=== PATIENT | female | born 1955 | race African-American/Black ===

== ENCOUNTER 2020-06-24 09:28 | Inpatient (IN) | payer MEDICARE, MEDICAID ==
[~2020-06-24] VITALS: Ht 182.9 cm; Wt 110.8 kg
[~2020-06-24 09:28] MED LIST: AMLO10TA80 PO; BACL-141 PO; FAMO20TA8; GABA-532 PO; HYDR25TA PO; SIMV-43 PO; TRAM50TA
[2020-06-24] MEDS ORDERED: SODIUM CHLORIDE 0.9% 1,000 ML IV ONE (10:00)
[2020-06-24 10:18] LABS: BASOPHILS % 0.3 % (0.0-2.0); EOSINOPHILS % 0.3 % (0.0-5.0); HEMATOCRIT. 35.2 % (36.0-48.0); HEMOGLOBIN. 11.2 g/dL (12.0-16.0); LYMPHOCYTES % 15.4 % (20.0-50.0); MEAN CORPUSCULAR HEMOGLOBIN 24.4 pg (28.0-32.0); MEAN CORPUSCULAR VOLUME 76.8 fL (81.0-99.0); MEAN PLATELET VOLUME 8.5 fl (7.4-10.4); MONOCYTES % 4.7 % (2.0-8.0); NEUTROPHILS % 79.3 % (40.0-76.0); PLATELET 253 x1000/uL (130-400); RED BLOOD CELL COUNT 4.58 mill/uL (4.2-5.4); RED CELL DISTRIBUTION WIDTH 19.7 % (11.6-14.6)
[2020-06-24 10:26] LABS: CHLORIDE 108 mEq/L (98-107)
[2020-06-24 10:28] LABS: PROTHROMBIN TIME 10.5 sec (9.6-11.0)
[2020-06-24 10:29] LABS: ETHANOL BLOOD < 10 mg/dL
[2020-06-24] MEDS ORDERED: FUROSEMIDE 40MG/4ML VIAL IVP ONE (11:15)
[2020-06-24] MEDS ORDERED: DEXAMETHASONE 4MG/ML 1ML VIAL IV ONE (11:45)
[2020-06-24 12:29] LABS: CLARITY URINE CLEAR (CLEAR); COLOR URINE YELLOW (YELLOW); KETONES URINE NEGATIVE (NEGATIVE); LEUKOCYTE ESTERASE URINE NEGATIVE (NEGATIVE); NITRITE URINE NEGATIVE (NEGATIVE); OCCULT BLOOD URINE NEGATIVE (NEGATIVE); PH URINE 6.5 (4.5-8.0); PROTEIN URINE 3+ (NEGATIVE); SPECIFIC GRAVITY URINE 1.016 (1.005-1.030); UROBILINOGEN URINE 0.2 E.U./dL (0.2-1.0)
[2020-06-24 12:43] LABS: *BARBITURATES SCREEN URINE NEGATIVE (NEGATIVE); *BENZODIAZEPINES SCREEN URINE NEGATIVE (NEGATIVE); *COCAINE SCREEN URINE NEGATIVE (NEGATIVE); METHADONE URINE SCREEN NEGATIVE (NEGATIVE); OPIATES URINE SCREEN NEGATIVE (NEGATIVE)
[2020-06-24 12:44] LABS: CANNABINOID URINE SCREEN NEGATIVE (NEGATIVE); PHENCYCLIDINE URINE SCREEN NEGATIVE (NEGATIVE)
[2020-06-24 12:46] LABS: *AMPHETAMINES SCREEN URINE NEGATIVE (NEGATIVE)
[2020-06-24] MEDS ORDERED: IOHEXOL 350 MG/ML 200ML INFUS..BTL IV ONE (14:23)
[2020-06-24] MEDS ORDERED: HYDRALAZINE 20MG/ML VIAL IV PRN (15:15)
[2020-06-24] MEDS ORDERED: AMLODIPINE 10MG TABLET PO SCH (15:15)
[2020-06-24] MEDS ORDERED: NITROGLYCERIN 0.4MG TABLET SL SL PRN (15:15)
[2020-06-24] MEDS ORDERED: CLONIDINE 0.1MG TABLET PO PRN (15:15)
[2020-06-24] MEDS ORDERED: ACETAMINOPHEN 325MG TABLET PO PRN (15:15)
[2020-06-24] MEDS ORDERED: TRAZODONE HCL 50MG TABLET PO PRN (15:15)
[2020-06-24] MEDS ORDERED: ONDANSETRON HCL 4MG/2ML INJ IV PRN (15:15)
[2020-06-24 16:00] VITALS: BP 135/76
[2020-06-24 16:05] LABS: CREATINE KINASE 284 IU/L (26-192)
[2020-06-24 17:41] LABS: BG BASE EXCESS -1.6 mmol/L (-2.0-2.0); BG CARBOXYHEMOGLOBIN 0.3 % (0.5-1.5); BG DEOXYHEMOGLOBIN 1.5 % (0.0-5.0); BG FRACTION INSPIRED OXYGEN 28; BG HCO3 ACT 25.1 mmol/L (22.0-26.0); BG METHEMOGLOBIN 0.4 % (0.0-1.5); BG OXYGEN SATURATION 98.5 % (92.0-98.5); BG OXYHEMOGLOBIN 97.8 % (94.0-97.0); BG PCO2 51.3 mmHg (35.0-45.0); BG PH 7.308 (7.350-7.450); BG PO2 141.3 mmHg (75.0-100.0); BG SAMPLE SITE RIGHT RADIAL; BG TOTAL HEMOGLOBIN 11.9 g/dL (12.0-18.0); BG VENT MODE NASAL CANNULA
[2020-06-24 20:00] VITALS: BP 159/64
[2020-06-24 20:04] VITALS: BP 148/78
[2020-06-24] MEDS ORDERED: ATORVASTATIN CALCIUM 40MG TABLET PO SCH (21:00)
[2020-06-24] MEDS ORDERED: INFLUENZA VACCINE 05/PF 0.5 ML VIAL IM ONE (21:30)
[2020-06-24] MEDS ORDERED: PNEUMOCOCCAL 23-VAL P-SAC VAC 0.5 ML IM ONE (21:30)
[2020-06-24] MEDS: HEPARIN 5000 UNITS/ML VIAL SUBCUT SCH (22:05)
[2020-06-25] VITALS: BP 168/79
[2020-06-25 08:17] VITALS: BP 152/66
[2020-06-25] MEDS: ASPIRIN 81MG TABLET PO SCH (08:31)
[2020-06-25] MEDS: HEPARIN 5000 UNITS/ML VIAL SUBCUT SCH ×2 (08:32→20:56)
[2020-06-25] MEDS ORDERED: FUROSEMIDE 40MG/4ML VIAL IVP SCH (09:00)
[2020-06-25] MEDS ORDERED: LOSARTAN POTASSIUM 25 MG TABLET PO SCH (09:15)
[2020-06-25 09:27] LABS: BASOPHILS % 0.3 % (0.0-2.0); EOSINOPHILS % 0.1 % (0.0-5.0); HEMATOCRIT. 35.6 % (36.0-48.0); HEMOGLOBIN. 11.2 g/dL (12.0-16.0); LYMPHOCYTES % 19.2 % (20.0-50.0); MEAN CORPUSCULAR HEMOGLOBIN 24.4 pg (28.0-32.0); MEAN CORPUSCULAR VOLUME 77.8 fL (81.0-99.0); MEAN PLATELET VOLUME 7.6 fl (7.4-10.4); MONOCYTES % 6.8 % (2.0-8.0); NEUTROPHILS % 73.6 % (40.0-76.0); PLATELET 257 x1000/uL (130-400); RED BLOOD CELL COUNT 4.58 mill/uL (4.2-5.4); RED CELL DISTRIBUTION WIDTH 19.9 % (11.6-14.6)
[2020-06-25 09:38] LABS: CHLORIDE 111 mEq/L (98-107)
[2020-06-25] MEDS ORDERED: MONT10TA32 MT (11:21)
[2020-06-25] MEDS ORDERED: ACET-2708 MT (11:21)
[2020-06-25] MEDS ORDERED: [UNRECOGNIZED DRUG - CODE] TOP (11:21)
[2020-06-25] MEDS ORDERED: SERT-422 MT (11:21)
[2020-06-25] MEDS ORDERED: ALBU18HF2 IH (11:21)
[2020-06-25] MEDS ORDERED: NAPHADR EACHEYE (11:21)
[2020-06-25] MEDS ORDERED: FERR325T6 MT (11:21)
[2020-06-25] MEDS ORDERED: ZOLP5TAB2 MT (11:21)
[2020-06-25] MEDS ORDERED: DICL100G31 TP (11:21)
[2020-06-25] MEDS ORDERED: FLUT15.844 BOTHNSTRLS (11:21)
[2020-06-25] MEDS ORDERED: OMEP20CA14 MT (11:21)
[2020-06-25] MEDS ORDERED: GLIP5TAB12 MT (11:21)
[2020-06-25] MEDS ORDERED: FLUT1BLS INH (11:21)
[2020-06-25] MEDS ORDERED: CALC60OI4 TP (11:21)
[2020-06-25] MEDS ORDERED: ASPI-1406 MT (11:21)
[2020-06-25] MEDS ORDERED: FURO40TA5 MT (11:21)
[2020-06-25] MEDS ORDERED: LIDO1ADH43 TP (11:21)
[2020-06-25] MEDS ORDERED: SODI88SP18 BOTHNSTRLS (11:21)
[2020-06-25] MEDS ORDERED: ALPR1TAB2 MT (11:21)
[2020-06-25] MEDS ORDERED: ATOR-2 MT (11:21)
[2020-06-25 11:40] VITALS: BP 139/70
[2020-06-25] MEDS ORDERED: FLUTICASONE/VILANTEROL 200-25 BLST.W.DEV ORI SCH (12:45)
[2020-06-25] MEDS ORDERED: DICLOFENAC SODIUM 4 GM TP PRN (12:45)
[2020-06-25] MEDS ORDERED: LIDOCAINE HCL TOP PRN (12:45)
[2020-06-25] MEDS ORDERED: LIDOCAINE TP SCH (12:45)
[2020-06-25] MEDS: OMEPRAZOLE 20MG CAPSULE EXTENDED RELEASE PO SCH (13:00)
[2020-06-25] MEDS: SERTRALINE HCL 50MG TABLET PO SCH (13:00)
[2020-06-25] MEDS: RISPERIDONE 0.5MG TABLET PO SCH (13:00)
[2020-06-25] MEDS: LIDOCAINE 5% PATCH TOP SCH (14:08)
[2020-06-25] MEDS: BENZONATATE 100MG CAPSULE PO SCH ×2 (14:10→21:15)
[2020-06-25] MEDS ORDERED: LIDOCAINE HCL 4% CREAM 76GM TUBE TP PRN (14:30)
[2020-06-25 16:03] VITALS: BP 100/56
[2020-06-25 20:00] VITALS: BP 92/43
[2020-06-25] MEDS: MONTELUKAST SODIUM 10MG TABLET PO SCH (20:55)
[2020-06-25] MEDS: ATORVASTATIN CALCIUM 40MG TABLET PO SCH (20:55)
[2020-06-25] MEDS ORDERED: MEDICATION NOT ON FORMULARY EA (Atorvastatin Calcium 1 TAB) MT SCH (21:00)
[2020-06-25] MEDS ORDERED: ATORVASTATIN CALCIUM 40MG TABLET PO SCH (21:00)
[2020-06-25] MEDS: ALBUTEROL (0.083%) 2.5MG/3ML NEB HHN SCH (21:42)
[2020-06-26] VITALS: BP 112/53
[2020-06-26] MEDS: ALBUTEROL (0.083%) 2.5MG/3ML NEB HHN SCH ×4 (01:02→21:13)
[2020-06-26] MEDS: BUDESONIDE 0.5MG/2ML NEB HHN SCH ×3 (01:02→21:13)
[2020-06-26 04:00] VITALS: BP 126/60
[2020-06-26] MEDS: BENZONATATE 100MG CAPSULE PO SCH ×3 (06:21→21:29)
[2020-06-26] MEDS: OMEPRAZOLE 20MG CAPSULE EXTENDED RELEASE PO SCH (06:21)
[2020-06-26 07:15] LABS: BASOPHILS % 0.2 % (0.0-2.0); EOSINOPHILS % 1.7 % (0.0-5.0); HEMATOCRIT. 30.3 % (36.0-48.0); HEMOGLOBIN. 9.8 g/dL (12.0-16.0); LYMPHOCYTES % 39.8 % (20.0-50.0); MEAN CORPUSCULAR HEMOGLOBIN 24.9 pg (28.0-32.0); MEAN CORPUSCULAR VOLUME 77.4 fL (81.0-99.0); MEAN PLATELET VOLUME 7.9 fl (7.4-10.4); MONOCYTES % 10.3 % (2.0-8.0); PLATELET 243 x1000/uL (130-400); RED BLOOD CELL COUNT 3.92 mill/uL (4.2-5.4); RED CELL DISTRIBUTION WIDTH 20.2 % (11.6-14.6)
[2020-06-26 07:18] LABS: CHLORIDE 108 mEq/L (98-107)
[2020-06-26 07:34] LABS: VITAMIN B12 SERUM 588 pg/mL (211-911)
[2020-06-26 08:00] VITALS: BP 121/63
[2020-06-26] MEDS: RISPERIDONE 0.5MG TABLET PO SCH (09:38)
[2020-06-26] MEDS: SERTRALINE HCL 50MG TABLET PO SCH (09:38)
[2020-06-26] MEDS: ASPIRIN 81MG TABLET PO SCH (09:38)
[2020-06-26] MEDS: HEPARIN 5000 UNITS/ML VIAL SUBCUT SCH ×2 (09:38→21:30)
[2020-06-26] MEDS: LIDOCAINE 5% PATCH TOP SCH (09:39)
[2020-06-26] MEDS ORDERED: SODIUM CHLORIDE 0.45% 250 ML IV ONE (10:00)
[2020-06-26] MEDS: AMLODIPINE 10MG TABLET PO SCH (11:59)
[2020-06-26 12:05] VITALS: BP 134/60
[2020-06-26 16:31] VITALS: BP 145/61
[2020-06-26 20:00] VITALS: BP 112/53
[2020-06-26] MEDS: SILDENAFIL CITRATE 20MG TABLET PO SCH (21:29)
[2020-06-26] MEDS: ATORVASTATIN CALCIUM 40MG TABLET PO SCH (21:29)
[2020-06-26] MEDS: MONTELUKAST SODIUM 10MG TABLET PO SCH (21:29)
[2020-06-27] VITALS: BP_SYST 112; BP_DIAS 34; BP_DIAS 54
[2020-06-27] MEDS: ALBUTEROL (0.083%) 2.5MG/3ML NEB HHN SCH ×3 (01:16→15:11)
[2020-06-27 04:00] VITALS: BP 119/95
[2020-06-27] MEDS: SILDENAFIL CITRATE 20MG TABLET PO SCH ×2 (06:13→14:00)
[2020-06-27] MEDS: OMEPRAZOLE 20MG CAPSULE EXTENDED RELEASE PO SCH (06:13)
[2020-06-27] MEDS: BENZONATATE 100MG CAPSULE PO SCH ×2 (06:13→13:45)
[2020-06-27 07:43] LABS: BASOPHILS % 0.4 % (0.0-2.0); EOSINOPHILS % 2.5 % (0.0-5.0); HEMATOCRIT. 30.2 % (36.0-48.0); HEMOGLOBIN. 9.6 g/dL (12.0-16.0); LYMPHOCYTES % 23.4 % (20.0-50.0); MEAN CORPUSCULAR HEMOGLOBIN 24.8 pg (28.0-32.0); MEAN CORPUSCULAR VOLUME 77.8 fL (81.0-99.0); MEAN PLATELET VOLUME 8.5 fl (7.4-10.4); MONOCYTES % 11.4 % (2.0-8.0); NEUTROPHILS % 62.3 % (40.0-76.0); PLATELET 229 x1000/uL (130-400); RED BLOOD CELL COUNT 3.88 mill/uL (4.2-5.4); RED CELL DISTRIBUTION WIDTH 19.3 % (11.6-14.6)
[2020-06-27 07:49] LABS: CHLORIDE 107 mEq/L (98-107)
[2020-06-27 08:00] VITALS: BP 129/46
[2020-06-27] MEDS: HEPARIN 5000 UNITS/ML VIAL SUBCUT SCH (09:00)
[2020-06-27] MEDS: SERTRALINE HCL 50MG TABLET PO SCH (10:10)
[2020-06-27] MEDS: AMLODIPINE 10MG TABLET PO SCH (10:11)
[2020-06-27] MEDS: RISPERIDONE 0.5MG TABLET PO SCH (10:11)
[2020-06-27] MEDS: LIDOCAINE 5% PATCH TOP SCH (10:12)
[2020-06-27] MEDS: ASPIRIN 81MG TABLET PO SCH (10:12)
[2020-06-27] MEDS ORDERED: REV20 PO (11:36)
[2020-06-27] MEDS ORDERED: RISP05 PO (11:36)
[2020-06-27 12:00] VITALS: BP 124/52
[2020-06-27 16:00] VITALS: BP 119/50
[2020-06-27 16:12] VITALS: BP 119/50
== END 2020-06-27 18:10 | disposition home health service (06) | DRG 91 ==
LOC: ER 09:28 → 6WST 12:53 → EDBEDREQ 12:57 → EDBEDREQTM 12:57 → ENRESERV 14:55 → 6WST 16:52
PROVIDERS: ADMIT Family Medicine Adult Medicine; ATTEND Family Medicine Adult Medicine
DX: G92 Toxic encephalopathy (principal); J96.21 Acute and chronic respiratory failure with hypoxia; J18.9 Pneumonia, unspecified organism; J96.22 Acute and chronic respiratory failure with hypercapnia; I13.0 Hypertensive heart and chronic kidney disease with heart failure and stage 1 through stage 4 chronic kidney disease, or unspecified chronic kidney disease; J44.1 Chronic obstructive pulmonary disease with (acute) exacerbation; E44.1 Mild protein-calorie malnutrition; I16.1 Hypertensive emergency; N17.9 Acute kidney failure, unspecified; J44.0 Chronic obstructive pulmonary disease with (acute) lower respiratory infection; N18.9 Chronic kidney disease, unspecified; I27.21 Secondary pulmonary arterial hypertension; F32.9 Major depressive disorder, single episode, unspecified; E66.9 Obesity, unspecified; R07.89 Other chest pain; D64.9 Anemia, unspecified; E78.5 Hyperlipidemia, unspecified; F41.9 Anxiety disorder, unspecified; I50.9 Heart failure, unspecified; Z79.51 Long term (current) use of inhaled steroids; Z79.84 Long term (current) use of oral hypoglycemic drugs; Z79.899 Other long term (current) drug therapy; Z99.81 Dependence on supplemental oxygen; Z87.891 Personal history of nicotine dependence; Z68.33 Body mass index [BMI] 33.0-33.9, adult; R00.1 Bradycardia, unspecified; W19.XXXA Unspecified fall, initial encounter
CPT/HCPCS: 36415; 36600; 70498; 71045; 71275; 74174; 76770; 80053; 80061; 80305; 80320; 81003; 82140; 82375; 82550; 82570; 82607; 82805; 82962; 83036; 83735; 83880; 84156; 84443; 84484; 85025; 90686; 90732; 93005; 93306; 94640; 95816; 97110; 97162; 97166; 97530; 99291; J1100; J1644; J1940; J7030; J7626; Q9967; G0480